=== PATIENT | male | born 1975 | race Caucasian/White ===

== ENCOUNTER 2024-11-26 10:23 | Emergency (ER) | payer MEDICAID, SELFPAY ==
--- NOTE | 2024-11-26 10:55 | XR_ITS ---
Examination: Abdomen sonogram, Limited Date and time of exam: November 26, 2024 1142 hours INDICATIONS: Epigastric pain beginning one year ago, severe today Technique: Real-time moctezuma scale transabdominal sonographic images of the upper abdomen obtained. Findings: Multiple subcentimeter gallbladder polyps No gallstones Gallbladder wall 0.3 cm no edema Common bile duct 0.5 cm Pancreatic head 2.7 cm Liver 13.6 cm right lobe liver masses 18 x 13 x 13 mm, 34 x 23 x 20 mm Normal hepatopedal portal venous flow Patent IVC IMPRESSION: Multiple small gallbladder polyps, consider HIDA scan follow-up to assess gallbladder ejection fraction Right lobe liver lesions as above, recommend MRI abdomen liver follow-up pre and postcontrast to assess these liver lesions
--- NOTE | 2024-11-26 10:56 | PD.EDRME ---
Rapid Medical Screening Exam RME Arrival date/time: 11/26/24 10:23 49-year-old male with no known medical history presents to the emergency room with a chief complaint of 10 out of 10 epigastric pain that radiates to the right upper quadrant x 3 days. Patient is also complaining of dysuria. I have greeted and performed a focused initial assessment of this patient. A comprehensive ED assessment and evaluation of the patient, analysis of all test results, and completion of the medical decision making process will be conducted by additional ED providers. Chief Complaint: Abdominal Pain Vital signs reviewed by provider: Yes
[2024-11-26 10:57] VITALS: BP 148/93; PULSE 74; RESP 18; TEMP 36.9; O2SAT 99; BMI 30.1
[2024-11-26] MEDS: ACETAMINOPHEN 325 MG TABLET 650 MG PO (11:16)
[2024-11-26 11:26] LABS: Basophils # (Auto) 0.1 Thou/mm3 (0.0-0.2); Basophils % (Auto) 0 % (0-2.5); Eosinophils # (Auto) 0.2 Thou/mm3 (0.0-0.5); Eosinophils % (Auto) 2 % (0-10); Hematocrit 47.7 % (41.0-53.0); Hemoglobin 16.7 g/dL (13.5-16.0); Immature Granulocytes % (Auto) 1 % (0-0); Immature Granulocytes Auto 0.08 Thou/mm3 (0.00-0.00); Lymphocytes # (Auto) 2.8 Thou/mm3 (1.0-4.8); Lymphocytes % (Auto) 23 % (10-50); Mean Corpuscular Hemoglobin 29.9 pg (25.0-35.0); Mean Corpuscular Volume 86 fL (80-100); Monocytes % (Auto) 8 % (0-12); Neutrophils # (Auto) 8.1 Thou/mm3 (1.8-7.7); Neutrophils % (Auto) 66 % (37-80); Nucleated Red Blood Cell % 0 /100 WBC (0); Platelet Count 277 Thou/mm3 (140-440); RDW Standard Deviation 38.5 fL (35.1-43.9); Red Blood Count 5.58 Miln/mm3 (4.50-5.90); White Blood Count 12.3 Thou/mm3 (3.8-10.6)
[2024-11-26 11:44] LABS: Collection Type, Urine Clean Catch; Squamous Epithelial Cell,Urine 0 /hpf (0-5)
[2024-11-26 11:47] LABS: Bilirubin,Urine Negative (Negative); Blood,Urine Negative (Negative); Clarity,Urine Clear (Clear/Hazy); Color,Urine Lt-Yellow (Lt Yel-Yel); Glucose, Urine Negative (Negative); Ketones,Urine Negative (Negative); Leukocyte Esterase,Urine Negative (Negative); Nitrite,Urine Negative (Negative); PH,Urine 6.5 (5.0-7.0); Protein,Urine Negative (Neg - Trace); RBC,Urine 1 /hpf (0-3); Specific Gravity,Urine 1.017 (1.001-1.035); Urobilinogen,Urine Negative mg/dL (0.0-1.0); WBC,Urine < 1 /hpf (0-5)
[2024-11-26 11:52] LABS: Alanine Aminotransferase 43 U/L (10-49); Albumin, Serum 5.1 gm/dL (3.5-5.0); Alkaline Phosphatase 72 U/L (46-116); Anion Gap 8 (7-16); Aspartate Amino Transferase 29 U/L (0-34); BUN/Creatinine Ratio 14 Ratio (12-20); Bilirubin,Total 0.5 mg/dL (0.3-1.2); Blood Urea Nitrogen 14 mg/dL (9-23); Carbon Dioxide 27.6 mMol/L (20.0-31.0); Chloride 105 mMol/L (98-107); Estimated Creatinine Clearance 95.1 mL/min (>60); Globulin 2.6 gm/dL (2.3-3.5); Glucose 102 mg/dL (74-106); Lipase 48 U/L (12-53); Osmolality,Calculated 281 (275-295); Potassium 4.5 mMol/L (3.4-5.1); Sodium 141 mMol/L (136-145); Total Protein 7.7 gm/dL (5.7-8.2); eGFR > 60 See Note
[2024-11-26 11:55] LABS: Amphetamine/Methamp Scrn,U Negative (Negative); Barbiturate Screen,Urine Negative (Negative); Benzodiazepines Screen,Urine Negative (Negative); Benzoylecgonine Screen, Ur Negative (Negative); Fentanyl Screen,Urine Negative (Negative); Opiate Screen,Urine Negative (Negative); THC Screen,Urine Negative (Negative)
--- NOTE | 2024-11-26 13:22 | PD.EDABDPN ---
ED Abdominal Pain RME/HPI General Chief Complaint: Abdominal Pain Stated complaint: EPIGASTRIC PAIN AND TESTICLE PAIN Time seen by provider: 11/26/24 12:53 Arrival date/time: 11/26/24 10:23 RME / HPI RME / HPI narrative: 49-year-old male patient with no significant medical history, came in for evaluation regarding gastric pain. Is been going for last 3 days as on and off epigastric pain, described as sharp pain, radiating to the back, severity moderate. Patient denies any vomiting fever, or other complaints. No medications taken prior to ER visit. Related Data Previous Rx's ?Medication ?Instructions ?Recorded famotidine 20 mg tablet 20 mg PO BID #14 tabs 04/08/24 dicyclomine 20 mg tablet 20 mg PO QID PRN abdominal pain 11/26/24 #30 tabs ibuprofen 800 mg tablet 800 mg PO TID PRN pain #30 tabs 11/26/24 Allergies Allergy/AdvReac Type Severity Reaction Status Date / Time No Known Allergies Allergy Verified 11/26/24 10:25 Review of Systems Review of Systems Narrative Review of Systems: Review of system reviewed and within normal limits except mentioned in HPI ED Exam Narrative Physical exam: VITAL SIGNS: Reviewed. GENERAL APPEARANCE: Alert and interactive, follows commands, no acute distress, HEAD AND FACE: Non-traumatic. ENT: PERRL, pink conjunctivitis, eyelid no trauma, Mucous membrane moist. NECK: Supple, nontender, no nuchal rigidity. CHEST: No tenderness, no crepitus, no paradoxical movement, no retractions. LUNGS: Clear, well ventilated, symmetric, no rales, no wheezing, no ronchi, no stridor, good breath sounds bilaterally. HEART: Regular rate, regular rhythm, no murmur, no gallops. ABDOMEN: Soft, positive bowel sounds, nondistended, no guarding, epigastric tenderness, no rebound, no masses, RECTAL: Deferred. GENITAL: Deferred. NEUROLOGICAL: Gross motor function intact sensory function intact, Appropriate for age. MUSCULOSKELETAL: low back nontender, full range of motion. EXTREMITIES: Nontender, full range of motion. SKIN: Color pink, dry, no rash, no lacerations, no abrasions, no contusions. LYMPHATICS: Deferred. Course Quality Measures none Orders Category Date Time Status US gall bladder Stat Exams 11/26/24 10:55 Completed CBC Stat Lab 11/26/24 11:05 Completed CMP [Comprehensive Metabolic Panel] Stat Lab 11/26/24 11:05 Completed Drug Screen,Urine Stat Lab 11/26/24 11:25 Completed Lipase Stat Lab 11/26/24 11:05 Completed UA [Urinalysis] Stat Lab 11/26/24 11:23 Completed Urine Culture Stat Lab 11/26/24 11:23 Received Acetaminophen Tab [Tylenol Tab] Med 11/26/24 10:55 Discontinued 650 mg PO X1 ONE Vital Signs Vital signs: Vital Signs Temperature 98.5 F 11/26/24 10:57 Pulse Rate 74 11/26/24 10:57 Respiratory Rate 18 11/26/24 10:57 Blood Pressure 148/93 H 11/26/24 10:57 Pulse Oximetry (%) 99 11/26/24 10:57 Oxygen Delivery Method Room Air 11/26/24 10:57 Abdominal Pain MDM MDM Narrative MDM Narrative:: 49-year-old male patient with no significant medical history, came in for evaluation regarding gastric pain. Is been going for last 3 days as on and off epigastric pain, described as sharp pain, radiating to the back, severity moderate. Patient denies any vomiting fever, or other complaints. No medications taken prior to ER visit. Patient's workup today UNREMARKABLE except for slight leukocytosis 12.3, CMP unremarkable LFTs normal total bili normal urinalysis no UTI negative for drug screening, ultrasound of the gallbladder showed Multiple small gallbladder polyps, consider HIDA scan follow-up to assess gallbladder ejection fraction Right lobe liver lesions as above, recommend MRI abdomen liver follow-up pre and postcontrast to assess these liver lesions Prior to discharge patient is denying any complaints. Patient was advised to see PCP and for referral to liver specialist for liver lesions and gallbladder polyps. Patient agrees with plan patient was also given a copy of her ultrasound results. Patient appears nontoxic and hemodynamically stable. Patient discharged home and instructed to follow-up with primary care provider in 24 to 48 hours. Instructed to return to the emergency department immediately if worsening of symptoms Patient data External records reviewed:: None Clinical information provided by:: patient Social determinants that could affect healthcare access:: none Patient has the following chronic illnesses:: None How is presenting disease/condition affected by chronic disease/condition?: exacerbated by Evaluation data The following diagnostics were reviewed and interpreted by me:: lab results and radiology exam(s) Lab and/or radiology exams considered but not ordered:: None Interpretation Summary: See results in MDM Medications / Prescriptions Medications or Prescriptions considered but not ordered:: None Medication administrations:: Medication Administration History Discontinued Medications Acetaminophen (Acetaminophen 325 Mg Tablet) 650 mg PO X1 ONE Stop: 11/26/24 10:56 Last Admin: 11/26/24 11:16 Dose: 650 mg Documented By: GERALD Tylenol Consultations Consultation(s) initiated? (list below): No Diagnosis Differential diagnosis abdominal pain: abdominal pain, constipation and small bowel obstruction Most likely diagnosis given after review of the tests above:: Gallbladder polyps, liver lesion Admission Indicated Admission indicated?: not indicated Admission Request Was there a request for admission?: No Disposition Plan Disposition Plan: Discharge Discharge Attestation Discharge Attestation: The patient and all family members were given an opportunity to ask questions and understood the discharge instructions. Discharge instructions specifically effects, indications for sooner follow up or return to the emergency department, and the expected course of current diagnosis. Patient condition: Stable Discharge Plan Plan Patient Disposition: HOME (Self Care) Disposition Comment: stable Prescriptions/Referrals Prescriptions/Med Rec: New dicyclomine 20 mg tablet 20 mg PO QID PRN (Reason: abdominal pain) Qty: 30 0RF ibuprofen 800 mg tablet 800 mg PO TID PRN (Reason: pain) Qty: 30 0RF No Action famotidine 20 mg tablet 20 mg PO BID Qty: 14 0RF Referrals: No Primary/Family,Physician [Primary Care Provider] - In 1 week Problem List Clinical Impression: Epigastric pain, Gallbladder polyp, Lesion of liver Patient/Caregiver Discharge Instructions Discharge Activity: activity as tolerated Education Materials: Understanding the Pain Response Additional Instructions: Thank you for the opportunity for serving you today. You are stable for discharged . You are advised to: Follow-up with your PCP in 1 to 2 days ask for referral to liver specialist Return to ED for worsening of symptoms Increase oral fluids Take medication as prescribed Print Language: Indonesian Stand Alone Forms: [place] Award Info., Patient Portal Info Letter
== END 2024-11-26 14:11 | disposition home or self-care (01) ==
PROVIDERS: Nurse Practitioner Family; Emergency Provider Emergency Medicine
DX: K82.4 Cholesterolosis of gallbladder (principal); K76.9 Liver disease, unspecified
CPT/HCPCS: 36415; 76705; 80053; 80307; 81001; 83690; 85025; 87086; 99284; A9270

== ENCOUNTER → 2025-02-20 | Outpatient (CLI) | payer MEDICAID, SELFPAY ==
--- NOTE | 2025-02-20 14:45 | XR_ITS ---
Examination: MRI abdomen with intravenous contrast. MRI abdomen without intravenous contrast. Date and time of exam: February 20, 2025 1619 hours INDICATIONS: 18 mm, 34 mm liver lesions on liver sonogram November 26, 2024, diagnosis liver disease unspecified, abdominal pain and nausea one year Technique: Multiple axial, sagittal and coronal sections of the abdomen obtained. Transverse images, TR 6020, TE 107. T1 weighted transverse images, TR 582, TE 9.5. T2-weighted sagittal images, TR 4000, TE 105. T2-weighted sagittal images, TR 4000, TE 5. Coronal images, TR 4210, TE 107. Axial and coronal images are obtained post 19 cc intravenous injection, gadolinium. Findings: Precontrast images demonstrate anterior 30 mm right lobe liver lesion and posterior medial 13 mm liver lesion Both lesions show enhancement on the postcontrast images, peripheral and nodular involving the anterior right lobe liver lesion No gallstones Normal, Common bile duct stones Normal pancreas No hydronephrosis No ascites IMPRESSION: 2 liver lesions as above which show enhancement, the larger lesion showing peripheral nodular enhancement These may represent hemangiomas Recommend three-month follow-up hepatic sonography with the radiologist in attendance
== END | disposition home or self-care (01) ==
PROVIDERS: PCP Family Medicine; Referring Provider Family Medicine; Visit Provider Family Medicine
DX: K76.9 Liver disease, unspecified (principal)
CPT/HCPCS: 74183; A9579

== ENCOUNTER 2025-03-15 06:25 | Emergency (ER) | payer OTHER, SELFPAY ==
[2025-03-15 06:32] VITALS: BP 120/89; PULSE 92; RESP 23; TEMP 36.7; O2SAT 96
[2025-03-15 06:39] VITALS: BMI 31.1
--- NOTE | 2025-03-15 07:25 | EKG_ITS ---
[facility] Test Date: 2025-03-15 Pat Name: JANEY AL[place]QUERQUE Department: Room: - Gender: Male Proc Tech: : 1975 Requested By: Jay Jay Medina Order Number: [id number] Reading MD: Jay Jay Medina Measurements Intervals [place] Rate: 68 P: 69 ID: [id number] QRS: 43 QRSD: 89 T: 63 QT: 353 QTc: 376 Interpretive Statements SINUS RHYTHM Compared to ECG 05/31/2023 07:14:09 No significant changes /store/S0/[id number].pdf
--- NOTE | 2025-03-15 07:26 | PD.EDADULT ---
ED General RME/HPI General Chief complaint: Abdominal Pain Stated complaint: ABDOMINAL PAIN Time Seen by Provider: 03/15/25 07:37 Arrival date/time: 03/15/25 06:25 RME / HPI RME / HPI narrative: 49-year-old male with past medical history of gallbladder polyps and liver hemangioma presents from halfway to the ED with chief complaints of abdominal pain epigastric rating it a 10 out of 10 and nausea and vomiting. Symptoms started last night and again show this morning with vomiting what he had for breakfast. Also complained of headache. Patient recently got a abdominal MRI on 02/20/2025 which only showed 2 liver hemangiomas and recommended follow-up with ultrasound in 3 months. Otherwise he denies any fevers, blood in the vomit, blood in the stools, diarrhea, cough, shortness of breath, chest pain, or chills. Related Data Previous Rx's ?Medication ?Instructions ?Recorded famotidine 20 mg tablet 20 mg PO BID #14 tabs 04/08/24 dicyclomine 20 mg tablet 20 mg PO QID PRN abdominal pain 11/26/24 #30 tabs ibuprofen 800 mg tablet 800 mg PO TID PRN pain #30 tabs 11/26/24 Allergies Allergy/AdvReac Type Severity Reaction Status Date / Time No Known Allergies Allergy Verified 11/26/24 10:25 Review of Systems Review of Systems Systems Reviewed: All systems reviewed, normal except as documented Past Medical History Past Medical History NEUROLOGIC: Negative Neurological Disorders CARDIAC: Negative Cardiac Disorders or Congestive Heart Failure RESPIRATORY: Negative Chronic Obstructive Pulmonary Disease (COPD) or Asthma GASTROINTESTINAL: Positive Gastrointestinal Disorders (fatty liver and gallstones) and Hepatitis GENITOURINARY: Negative Genitourinary Disorders or Renal Disease REPRODUCTIVE: Negative Breast Cancer MUSCULOSKELETAL: Negative Musculoskeletal Disorders ENDOCRINE: Negative Endocrine Disorders, Diabetes Mellitus Type 1 or Diabetes Mellitus Type 2 HEMATOLOGIC: Negative Blood Disorders or Sickle Cell Disease OTHER HISTORY: Negative Hospitalization, Autoimmune Disease, Down Syndrome, Developmental Delay, Shingles, Falls, Blood Transfusions, Blood Transfusion Reaction, Anesthesia Reactions, Organ Transplant, Chemotherapy, Radiation Therapy, Hyperbaric Therapy, MRSA, VRSA, Vancomycin-Resistant Enterococci, Human Immunodeficiency Virus (HIV), Chicken Pox, Measles, Mumps, Rubella ([place] Measles), Pertussis, Clostridium Difficile or Breast Cancer Family History FAMILY HISTORY: Positive Family Cardiac Disorders (heart problems (dad)); Negative Family Respiratory Disorders, Family Cancer or Family Anesthesia Reaction Surgical History SURGICAL: Negative Organ Transplant Social History SMOKING STATUS: Former smoker ED Exam Narrative Physical exam: Gen: A&O X 3, NAD HEENT: NCAT, EOMI, Pupils reactive ZACK, not icteric. External ears normal. No rhinorrhea. Moist mucous membranes. Neck: Supple, full range of motion, no observable masses, No meningeal sign. Lungs: No Respiratory distress, clear bilateral. CV: RRR, no murmurs. Abdomen: Soft, but distended, tenderness in RUQ, No rebound tenderness. MSK: No joint swelling, no redness, peripheral pulses presents, lumbar with no edema. Skin: No rashes, petechiae, lesions. Neuro: No focal neurological deficits appreciated, sensory and motor intact. Psych: Cooperative, appropriate mood and effect. Course Quality Measures none Orders Category Date Time Status Dental Equipment Repairer Q4H START 00 Care 03/15/25 07:25 Active Continuous Pulse Oximetry NOW Care 03/15/25 07:25 Completed EKG (ED ONLY) *Do not use* NOW Care 03/15/25 07:25 Completed IV [Insert IV] NOW Care 03/15/25 07:25 Active CXRP [XR chest 1V portable] Stat Exams 03/15/25 07:36 Taken EKG (ED Only) Stat Exams 03/15/25 07:25 Draft US abdomen Stat Exams 03/15/25 07:36 Completed CBC [CBC] Stat Lab 03/15/25 07:46 Completed CMP [Comprehensive Metabolic Panel] Stat Lab 03/15/25 07:46 Completed Drug Screen,Urine Stat Lab 03/15/25 07:24 Ordered Lactic Acid [Lactate (Lactic Acid)] Stat Lab 03/15/25 07:46 Completed Lipase Stat Lab 03/15/25 07:46 Completed UA [Urinalysis] Stat Lab 03/15/25 07:24 Ordered Acetaminophen Tab [Tylenol Tab] Med 03/15/25 08:43 Discontinued 650 mg PO X1 ONE Morphine Inj Med 03/15/25 07:44 Discontinued 1 mg IVP X1 ONE Ondansetron Inj [Zofran Inj] Med 03/15/25 08:48 Discontinued 4 mg IVP X1 ONE Vital Signs Vital signs: Vital Signs Temperature 98.0 F 03/15/25 06:32 Pulse Rate 92 03/15/25 06:32 Respiratory Rate 23 H 03/15/25 06:32 Blood Pressure 120/89 H 03/15/25 06:32 Pulse Oximetry (%) 96 03/15/25 06:32 Oxygen Delivery Method Room Air 03/15/25 06:32 Discharge Plan Plan Patient Disposition: Nursing Home/Court/Law Prescriptions/Referrals Prescriptions/Med Rec: No Action famotidine 20 mg tablet 20 mg PO BID Qty: 14 0RF dicyclomine 20 mg tablet 20 mg PO QID PRN (Reason: abdominal pain) Qty: 30 0RF ibuprofen 800 mg tablet 800 mg PO TID PRN (Reason: pain) Qty: 30 0RF Referrals: No Primary/Family,Physician [Primary Care Provider] - In 1 week Problem List Clinical Impression: Gastroenteritis, Vomiting Patient/Caregiver Discharge Instructions Other Activity Instructions:: Okay to take Tylenol for headaches. Follow-up in 3 months with liver ultrasound to assess size of hemangiomas. Come back to the ER if worsening abdominal pain, fevers, chills, or develop any diarrhea. Education Materials: ED Gastroenteritis, Noninfectious, ED Vomiting (Adult) Print Language: Martiniquais MDM Narrative MDM hospital course: 7:15: Patient was assessed the chart was reviewed. 7:23: Order diagnostic labs and imaging including abdomen and ultrasound, chest x-ray, and EKG. 7:44 Ordered morphine 1 mg. 8:43: Patient was complaining of headache therefore gave Tylenol. 9:18: Abdominal ultrasound was reviewed and did not show any gallstones or pancreatitis at this time. At this time patient is medically cleared to go back to the [facility]. 9:23: Patient reassessed stated he was feeling better. Patient was updated on findings of the ultrasound. At this time patient is medically cleared to be discharged. Case disclosed with Attending Dr. Dalia Medina PGY2 Disclaimer: Even though this this note was dictated by speech recognition and even though it was carefully revised there may still be minor errors in ham curer due to voice recognition software. Medication Administration(s) Medication Administration History Discontinued Medications Acetaminophen (Acetaminophen 325 Mg Tablet) 650 mg PO X1 ONE Stop: 03/15/25 08:44 Last Admin: 03/15/25 08:48 Dose: 650 mg Documented By: JANE Morphine Sulfate (Morphine Sulf Inj 10 Mg/Ml Vial) 1 mg IVP X1 ONE Stop: 03/15/25 07:45 Last Admin: 03/15/25 08:00 Dose: 1 mg Documented By: MM Ondansetron HCl (Ondansetron Inj 2 Mg/Ml Inj 2 Ml) 4 mg IVP X1 ONE; Protocol Stop: 03/15/25 08:49
--- NOTE | 2025-03-15 07:36 | XR_ITS ---
Examination: Abdomen sonogram, complete Date and time of exam: March 15, 2025, 0802 hrs. Indications: Nausea vomiting this week. Technique: Multiple real-time grayscale transabdominal sonographic images of the abdomen have been obtained. Findings: Subcentimeter gallbladder polyps. No gallstones. Normal gallbladder wall. Common bile duct 0.5 cm no stones. Pancreatic head 2.8 cm. Visualized aorta not enlarged. Liver 17.4 cm irregular contour, right lobe liver lesions 2.3 cm, 2.6 cm No visualization portal vein. Patent IVC Right kidney 11.2 cm renal cortex 1.9 cm Left kidney 11.2 cm renal cortex 2.1 cm 11 mm lower pole left renal calculus. Spleen 10.8 cm Impression: Negative for gallstones Liver lesions as above, please see the MRI abdomen liver report February 20, 2025.
--- NOTE | 2025-03-15 07:36 | XR_ITS ---
Examination: AP chest single view Technique: AP portable chest single view Date and time: March 15, 2025, 0824 hrs. Indications: Wheezing chest pain beginning today. Findings: Normal heart size. Lungs are clear. The osseous structures are intact. Impression: No active disease.
[2025-03-15 08:00] LABS: Lactate (Lactic Acid) 0.9 mMol/L (0.4-2.0)
[2025-03-15] MEDS: MORPHINE SULF INJ 10 MG/ML VIAL IVP (08:00)
[2025-03-15 08:01] VITALS: BP 144/90; PULSE 70; RESP 18; TEMP 37.2; O2SAT 97
[2025-03-15 08:02] LABS: Basophils # (Auto) 0.1 Thou/mm3 (0.0-0.2); Basophils % (Auto) 1 % (0-2.5); Eosinophils # (Auto) 0.3 Thou/mm3 (0.0-0.5); Eosinophils % (Auto) 3 % (0-10); Hematocrit 46.1 % (41.0-53.0); Hemoglobin 16.0 g/dL (13.5-16.0); Immature Granulocytes Auto 0.07 Thou/mm3 (0.00-0.00); Lymphocytes # (Auto) 1.8 Thou/mm3 (1.0-4.8); Lymphocytes % (Auto) 18 % (10-50); Mean Corpuscular HGB Conc 34.7 g/dl (31.0-37.0); Mean Corpuscular Hemoglobin 29.5 pg (25.0-35.0); Mean Corpuscular Volume 85 fL (80-100); Monocytes # (Auto) 1.2 Thou/mm3 (0.0-0.8); Monocytes % (Auto) 11 % (0-12); Neutrophils # (Auto) 6.8 Thou/mm3 (1.8-7.7); Neutrophils % (Auto) 67 % (37-80); Nucleated Red Blood Cell # 0.00 Thou/mm3 (0.00-0.00); Nucleated Red Blood Cell % 0 /100 WBC (0); Platelet Count 202 Thou/mm3 (140-440); RDW Standard Deviation 37.7 fL (35.1-43.9); Red Blood Count 5.42 Miln/mm3 (4.50-5.90); White Blood Count 10.1 Thou/mm3 (3.8-10.6)
[2025-03-15 08:18] LABS: Alanine Aminotransferase 33 U/L (10-49); Albumin, Serum 4.7 gm/dL (3.5-5.0); Albumin/Globulin Ratio 2.1 (1.2-2.2); Alkaline Phosphatase 74 U/L (46-116); Anion Gap 8 (7-16); Aspartate Amino Transferase 20 U/L (0-34); BUN/Creatinine Ratio 12 Ratio (12-20); Bilirubin,Total 0.6 mg/dL (0.3-1.2); Blood Urea Nitrogen 12 mg/dL (9-23); Calcium 9.7 mg/dL (8.3-10.6); Calcium (Corrected) 9.7 mg/dL (8.5-10.1); Carbon Dioxide 28.1 mMol/L (20.0-31.0); Chloride 105 mMol/L (98-107); Creatinine (Component) 1.0 mg/dL (0.6-1.3); Estimated Creatinine Clearance 96.7 mL/min (>60); Globulin 2.2 gm/dL (2.3-3.5); Glucose 85 mg/dL (74-106); Lipase 47 U/L (12-53); Osmolality,Calculated 279 (275-295); Potassium 4.2 mMol/L (3.4-5.1); Sodium 141 mMol/L (136-145); Total Protein 6.9 gm/dL (5.7-8.2); eGFR > 60 See Note
[2025-03-15] MEDS: ACETAMINOPHEN 325 MG TABLET 650 MG PO (08:48)
[2025-03-15 09:37] VITALS: BP 140/89; PULSE 77; RESP 18; TEMP 37; O2SAT 97
== END 2025-03-15 09:36 ==
PROVIDERS: Emergency Provider Family Medicine
DX: K52.9 Noninfective gastroenteritis and colitis, unspecified (principal); R06.2 Wheezing; R07.9 Chest pain, unspecified
CPT/HCPCS: 36415; 71045; 76700; 80053; 80307; 81001; 83605; 83690; 85025; 93005; 96374; 99284; J2270; A9270

== ENCOUNTER → 2025-05-15 | Outpatient (CLI) | payer MEDICAID, SELFPAY ==
--- NOTE | 2025-05-15 13:00 | XR_ITS ---
Examination: Abdomen sonogram, Limited Date and time of exam: May 15, 2025 at 1303 hours INDICATIONS: Right lobe liver lesion 2.3 cm 2.6 cm on ultrasound March 15, 2025 Technique: Real-time moctezuma scale transabdominal sonographic images of the upper abdomen obtained. Findings: Multiple gallbladder polyps the largest 7 mm Gallbladder wall 0.3 cm no edema Common bile duct 0.3 cm no stones Pancreatic head 2.5 cm Liver 16.9 cm Right lobe liver lesion 3.6 cm hyperechoic which may represent focal fatty sparing Hypoechoic solid mass in the mid right lobe the liver 27 x 19 x 30 mm Normal hepatopedal portal venous flow Patent IVC IMPRESSION: Right lobe liver through solid lesion 27 x 19 x 30 mm, recommend follow-up MRI at this time to compare with the February 20, 2025 exam
== END | disposition home or self-care (01) ==
LOC: SDIM 12:46
PROVIDERS: PCP Family Medicine; Referring Provider Family Medicine; Visit Provider Family Medicine
DX: K76.9 Liver disease, unspecified (principal)
CPT/HCPCS: 76705